=== PATIENT | male | born 1990 | race Caucasian/White ===

== ENCOUNTER 2017-10-22 12:42 | Emergency (ER) | payer BC ==
[2017-10-22 13:31] VITALS: BP 101/62
--- NOTE | 2017-10-22 15:23 | ED ---
Skin Complaint - HPI Summary HPI Summary: 27 yr old with two patches on his left thigh he has been treating with antifungal cream for the past month. One patch almost gone, the other patch has not improved. He has been having this present for about two months. No other complaints. No fever, chills. - History of Current Complaint Chief Complaint: [facility] Time Seen by Provider: 10/22/17 14:44 Stated Complaint: RING WORM Pain Intensity: 0 Pain Scale Used: 0-10 Numeric - Allergy/Home Medications Allergies/Adverse Reactions: Allergies Allergy/AdvReac Type Severity Reaction Status Date / Time No Known Allergies Allergy Verified 10/22/17 13:26 PMH/Surg Hx/FS Hx/Imm Hx Previously Healthy: Yes Infectious Disease History: No Infectious Disease History: Denies: Traveled Outside the [place] in Last 30 Days - Family History Known Family History: Positive: None - Social History Occupation: Employed Full-time Alcohol Use: Occasionally Substance Use Type: Reports: None Smoking Status (MU): Never Smoked Tobacco Review of Systems Constitutional: Negative Positive: Rash All Other Systems Reviewed And Are Negative: Yes Physical Exam Triage Information Reviewed: Yes Vital Signs On Initial Exam: Initial Vitals Temp Pulse Resp BP Pulse Ox 98.4 F 59 16 101/62 99 10/22/17 13:27 10/22/17 13:27 10/22/17 13:27 10/22/17 13:27 10/22/17 13:27 Vital Signs Reviewed: Yes Appearance: Positive: Well-Appearing, No Pain Distress Skin: Positive: Other - two patches of what is classic ringworm on the medial left thigh, the more distal patch with raised, hyperpigmented irregular boarder with scale and central scale. More proximal area has faded mostly but still present. Head/Face: Positive: Normal Head/Face Inspection Eyes: Positive: EOMI Respiratory/Lung Sounds: Positive: Clear to Auscultation, Breath Sounds Present Cardiovascular: Positive: RRR. Negative: Murmur Abdomen Description: Negative: Distended Musculoskeletal: Positive: Strength/ROM Intact Neurological: Positive: Sensory/Motor Intact, Alert, Oriented to Person Place, Time, CN Intact II-III Psychiatric: Positive: Normal - Hugo Coma Scale Best Eye Response: 4 - Spontaneous Best Motor Response: 6 - Obeys Commands Best Verbal Response: 5 - Oriented Coma Scale Total: 15 Diagnostics - Vital Signs Vital Signs Temp Pulse Resp BP Pulse Ox 10/22/17 13:27 98.4 F 59 16 101/62 99 - Laboratory Lab Statement: Any lab studies that have been ordered have been reviewed, and results considered in the medical decision making process. Course/Dx - Course Course Of Treatment: 27 yr old male with ringworm. Continue topical antifungal , add seslun blue shampoo to bathing routine, and 200 diflucan po weekly for two weeks. - Diagnoses Provider Diagnoses: Tinea corporis Discharge - Sign-Out/Discharge Documenting (check all that apply): Discharge/Admit/Transfer - Discharge Plan Condition: Good Disposition: HOME Prescriptions: Fluconazole 100 MG TAB* [Diflucan 100 MG TAB*] 200 mg PO WEEKLY #4 tab Patient Education Materials: Tinea Corporis (ED) Referrals: [facility] [Outside] Non Staff,Doctor [Primary Care Provider] - - Billing Disposition and Condition Condition: GOOD Disposition: HOME
== END 2017-10-22 15:00 | disposition home or self-care (01) ==
LOC: UCCORT 12:42
DX: B35.4 Tinea corporis (principal)
CPT/HCPCS: 99202; G0463